=== PATIENT | female | born 1960 | race Caucasian/White ===

== ENCOUNTER 2018-01-16 09:35 | Day surgery (SDC) | payer OTHER ==
[2018-01-16] MEDS ORDERED: LACTATED RINGER'S 1,000 ML IV (10:30)
[2018-01-16] MEDS ORDERED: DEXAMETHASONE 4 MG/ML 1 ML INJ (11:14)
[2018-01-16] MEDS ORDERED: MIDAZOLAM 1 MG/ML 2 ML INJ (11:42)
[2018-01-16] MEDS ORDERED: FENTAnyl 50 MCG/ML VIAL (11:42)
[2018-01-16] MEDS ORDERED: ALBUTEROL 0.083% (NEB) 2.5 MG/3 ML AMP HHN (12:00)
[2018-01-16] MEDS ORDERED: ONDANSETRON 4 MG INJ IV (12:00)
[2018-01-16] MEDS ORDERED: HYDROmorphONE 1 MG/5 ML IV SYRINGE IV (12:00)
[2018-01-16] MEDS ORDERED: MEPERIDINE 25 MG INJ IV (12:00)
[2018-01-16] MEDS ORDERED: DIPHENHYDRAMINE 50 MG INJ IV (12:00)
[2018-01-16] MEDS ORDERED: FENTAnyl 50 MCG/ML VIAL IV ×3 (12:00)
[2018-01-16] MEDS ORDERED: SUCCINYLCHOLINE CHLORIDE 100 MG/5 ML SYG IV (12:02)
[2018-01-16] MEDS ORDERED: ROCURONIUM 50 MG INJ (12:02)
[2018-01-16] MEDS ORDERED: CEFAZOLIN 1 GM INJ (12:02)
[2018-01-16] MEDS ORDERED: LIDOCAINE 100 MG SYRINGE (12:02)
[2018-01-16] MEDS ORDERED: SUGAMMADEX SODIUM 200 MG/2 ML VIAL IV (12:02)
[2018-01-16] MEDS ORDERED: PROPOFOL 40 ML (12:02)
[2018-01-16] MEDS: BUPIVACAINE 0.5% (SDV) 30 ML INJ (12:11)
[2018-01-16] MEDS: LIDOCAINE 1% (MPF) 30 ML INJ (12:12)
[2018-01-16] MEDS: POVIDONE IODINE 10% 28.4 GM OINT (12:12)
[2018-01-16] MEDS: METOCLOPRAMIDE 10 MG INJ IV (13:18)
[2018-01-16] MEDS: HYDROmorphONE 1 MG/5 ML IV SYRINGE IV ×2 (13:18→13:48)
== END 2018-01-16 14:50 | disposition home or self-care (01) ==
LOC: SDS 09:35
DX: M20.41 Other hammer toe(s) (acquired), right foot (principal); D16.31 Benign neoplasm of short bones of right lower limb
CPT/HCPCS: 28124; 88304; 88311